=== PATIENT | male | born 1980 | race Caucasian/White ===

== ENCOUNTER 2017-08-02 06:54 | Emergency (ER) | payer SELFPAY ==
[2017-08-02] MEDS ORDERED: Dexamethasone 10 MG/ML VIAL ONE (07:29)
[2017-08-02] MEDS ORDERED: Ketorolac Tromethamine 30 MG/ML VIAL ONE (07:29)
[2017-08-02] MEDS ORDERED: cefTRIAXone\\ROCEPHIN 2 GM, Admixture Fee 1 EACH in Sodium Chloride 0.9% 100 ML IVPB SCH (07:45)
[2017-08-02] MEDS ORDERED: Acetaminophen 500 MG TAB ONE (08:28)
== END 2017-08-02 10:17 | disposition home or self-care (01) ==
LOC: ERS 06:54
DX: J03.90 Acute tonsillitis, unspecified (principal); F17.210 Nicotine dependence, cigarettes, uncomplicated
CPT/HCPCS: 87070; 87081; 87430; 96361; 96365; 96375; 99406; J0696; J1100; J1885; J7050